=== PATIENT | male | born 1980 | race African-American/Black ===

== ENCOUNTER 2022-11-11 16:29 | Inpatient (IN) | payer OTHER ==
[~2022-11-11] VITALS: Ht 162.6 cm; Wt 82.4 kg
[2022-11-11] MEDS ORDERED: SODIUM CHLORIDE 0.9% 1,000 ML IV ONE (16:45)
[2022-11-11 17:20] LABS: Basophils # (auto) 0 10 ^3/uL (0-0.2); Basophils % (auto) 0.6 % (0.0-2.0); Eosinophils # (auto) 0.3 10 ^3/uL (0-0.8); Eosinophils % (auto) 4.6 % (0.0-7.0); Hematocrit 41.9 % (41.0-53.0); Lymphocytes # (auto) 2.1 10 ^3/uL (0.4-5.4); Mean Corpuscular Hgb Conc. 33.5 g/dL (32.0-36.0); Mean Corpuscular Volume 86.4 fL (80.0-100.0); Monocytes # (auto) 0.6 10 ^3/uL (0-1.3); Neutrophils # (auto) 3.8 10 ^3/uL (1.6-8.6); Neutrophils % (auto) 54.8 % (37.0-80.0); Nucleated Red Blood Cells % 0.1 %; Red Blood Cells 4.85 10^6/uL (4.5-5.90); Red Cell Distribution Width 13.7 % (11.8-14.3); White Blood Cell 6.9 10^3/uL (4.4-10.8)
[2022-11-11 17:47] LABS: Albumin 3.7 g/dL (3.4-5.0); Calcium 8.5 mg/dL (8.5-10.1); Potassium 4.1 mmol/L (3.5-5.1)
[2022-11-11 17:51] LABS: BUN/Creatinine Ratio 14.5 (10.0-20.0); Bilirubin, Total 0.5 mg/dL (0.2-1.0); Total Protein 7.6 g/dL (6.4-8.2)
[2022-11-11 18:34] LABS: INR 0.96 (0.9-1.15); Partial Thromboplastin Time 28.6 sec (24.6-33.4)
[2022-11-11] MEDS ORDERED: CLINDAMYCIN 600MG IV 50 ML IV ONE (19:00)
[2022-11-11] MEDS ORDERED: ONDANSETRON HCL 4 MG/2 ML VIAL IV PRN (21:00)
[2022-11-11] MEDS ORDERED: MORPHINE SULFATE INJ 2 MG/ml SYRG IV PRN (21:00)
[2022-11-11] MEDS ORDERED: NITROGLYCERIN 0.4 MG SL TAB SL PRN (21:00)
[2022-11-11] MEDS ORDERED: VANCOMYCIN 1GM/250ML 250 ML IV ONE (22:45)
[2022-11-11] MEDS ORDERED: VANCOMYCIN PER PHARMACY 1,000 MG IV SCH (22:45)
[2022-11-12 07:21] LABS: Urine Bacteria NONE SEEN /hpf (None Seen); Urine Blood Negative /uL (Negative); Urine Specific Gravity 1.023 (1.001-1.035); Urine WBC 1 /hpf (0 - 3)
[2022-11-12] MEDS: ENOXAPARIN SOD 40 MG/0.4 ML SYRINGE SC SCH (09:44)
[2022-11-12] MEDS: VANCOMYCIN 1GM/250ML 250 ML IV SCH ×2 (11:12→23:23)
[2022-11-12 13:00] VITALS: BP 106/74
[2022-11-12 16:53] VITALS: BP 106/70
[2022-11-12] MEDS: HYDROcodone-ACET 10/325MG TAB PO PRN ×2 (18:45→23:24)
[2022-11-12 20:00] VITALS: BP 115/73
[2022-11-12 22:00] VITALS: BP 115/73
[2022-11-13 05:00] VITALS: BP 112/64
[2022-11-13] MEDS ORDERED: diphenhdrAMINE HCL 50 MG/1 ML VL IV ONE (06:30)
[2022-11-13 08:30] VITALS: BP 106/71
[2022-11-13] MEDS: ENOXAPARIN SOD 40 MG/0.4 ML SYRINGE SC SCH (09:54)
[2022-11-13 12:30] VITALS: BP 98/59
[2022-11-13] MEDS: ceFAZolin 1GM/50ML 50 ML IV SCH ×2 (14:12→21:34)
[2022-11-13 17:00] VITALS: BP 118/76
[2022-11-13 22:00] VITALS: BP 112/72
[2022-11-13] MEDS: HYDROcodone-ACET 10/325MG TAB PO PRN (22:11)
[2022-11-14 05:00] VITALS: BP 110/61
[2022-11-14] MEDS: ceFAZolin 1GM/50ML 50 ML IV SCH (06:56)
[2022-11-14 08:30] VITALS: BP 113/78
[2022-11-14] MEDS: HYDROcodone-ACET 10/325MG TAB PO PRN ×2 (10:05→16:02)
[2022-11-14] MEDS: ENOXAPARIN SOD 40 MG/0.4 ML SYRINGE SC SCH (10:06)
[2022-11-14 12:02] LABS: Hepatitis C Antibody Negative (Negative)
[2022-11-14 13:30] VITALS: BP 101/63
[2022-11-14] MEDS: LINEZOLID 600MG/300ML 300 ML IV SCH ×2 (15:24→22:05)
[2022-11-14 17:05] VITALS: BP 113/68
[2022-11-14 22:00] VITALS: BP 138/83
[2022-11-14] MEDS ORDERED: LINEZOLID 600 MG IV SCH (22:00)
[2022-11-15 05:09] VITALS: BP 114/68
[2022-11-15 09:00] VITALS: BP 112/65
[2022-11-15] MEDS: ENOXAPARIN SOD 40 MG/0.4 ML SYRINGE SC SCH (10:32)
[2022-11-15] MEDS: LINEZOLID 600MG/300ML 300 ML IV SCH ×2 (10:32→21:05)
[2022-11-15] MEDS: HYDROcodone-ACET 10/325MG TAB PO PRN ×2 (10:41→21:03)
[2022-11-15 13:00] VITALS: BP 112/59
[2022-11-15 17:00] VITALS: BP 101/68
[2022-11-16 05:00] VITALS: BP 110/62
[2022-11-16] MEDS: HYDROcodone-ACET 10/325MG TAB PO PRN (05:58)
[2022-11-16 08:30] VITALS: BP 107/56
[2022-11-16] MEDS: LINEZOLID 600MG/300ML 300 ML IV SCH (09:50)
[2022-11-16] MEDS: ENOXAPARIN SOD 40 MG/0.4 ML SYRINGE SC SCH ×2 (09:51→09:59)
[2022-11-16 12:30] VITALS: BP 112/72
[2022-11-16] MEDS ORDERED: predniSONE 20 MG TAB PO ONE (13:30)
[2022-11-16 17:07] VITALS: BP 113/73
[2022-11-16 22:00] VITALS: BP 125/74
[2022-11-16] MEDS: VANCOMYCIN 1GM/250ML 250 ML IV SCH (22:12)
[2022-11-16] MEDS: diphenhdrAMINE HCL 50 MG/1 ML VL IV PRN (22:13)
[2022-11-16] MEDS: APIXABAN 5 MG TAB PO SCH (22:13)
[2022-11-17 05:00] VITALS: BP 118/81
[2022-11-17 08:30] VITALS: BP 117/74
[2022-11-17] MEDS: VANCOMYCIN 1GM/250ML 250 ML IV SCH ×2 (08:46→22:31)
[2022-11-17] MEDS: APIXABAN 5 MG TAB PO SCH ×2 (08:47→22:32)
[2022-11-17 12:30] VITALS: BP 109/67
[2022-11-17 16:55] VITALS: BP 113/81
[2022-11-17 22:56] VITALS: BP 126/86
[2022-11-18 05:00] VITALS: BP 111/70
[2022-11-18] MEDS: diphenhdrAMINE HCL 50 MG/1 ML VL IV PRN ×2 (05:54→12:05)
[2022-11-18 06:19] LABS: Calcium 8.4 mg/dL (8.5-10.1); Potassium 3.8 mmol/L (3.5-5.1)
[2022-11-18 06:25] LABS: Albumin 3.1 g/dL (3.4-5.0); Bilirubin, Total 0.3 mg/dL (0.2-1.0); Total Protein 7.4 g/dL (6.4-8.2)
[2022-11-18] MEDS: traMADol HCL 50 MG TAB PO PRN (08:26)
[2022-11-18 08:30] VITALS: BP 117/80
[2022-11-18] MEDS: VANCOMYCIN 1GM/250ML 250 ML IV SCH (10:00)
[2022-11-18] MEDS: APIXABAN 5 MG TAB PO SCH ×2 (10:58→21:09)
[2022-11-18 12:30] VITALS: BP 111/76
[2022-11-18] MEDS ORDERED: predniSONE 20 MG TAB PO ONE (13:00)
[2022-11-18] MEDS ORDERED: CLINDAMYCIN 300MG IV 50 ML IV SCH (14:00)
[2022-11-18] MEDS ORDERED: CLINDAMYCIN 600MG IV 50 ML IV SCH (14:00)
[2022-11-18 16:52] VITALS: BP 105/75
[2022-11-18] MEDS: CLINDAMYCIN 300MG IV 50 ML IV SCH ×2 (17:00→18:16)
[2022-11-18 22:00] VITALS: BP 112/73
[2022-11-19] MEDS: CLINDAMYCIN 300MG IV 50 ML IV SCH ×6 (01:33→17:35)
[2022-11-19] MEDS: traMADol HCL 50 MG TAB PO PRN (01:34)
[2022-11-19 05:00] VITALS: BP 111/70
[2022-11-19] MEDS: diphenhdrAMINE HCL 50 MG/1 ML VL IV PRN ×3 (06:48→16:23)
[2022-11-19 09:00] VITALS: BP 115/79
[2022-11-19] MEDS: APIXABAN 5 MG TAB PO SCH ×2 (11:29→21:42)
[2022-11-19 13:00] VITALS: BP 114/68
[2022-11-19 16:00] VITALS: BP 106/77
[2022-11-19 22:01] VITALS: BP 116/60
[2022-11-20] MEDS: diphenhdrAMINE HCL 50 MG/1 ML VL IV PRN ×4 (01:25→23:09)
[2022-11-20] MEDS: CLINDAMYCIN 300MG IV 50 ML IV SCH ×6 (01:29→18:51)
[2022-11-20 05:00] VITALS: BP 112/67
[2022-11-20 09:00] VITALS: BP 122/70
[2022-11-20] MEDS: APIXABAN 5 MG TAB PO SCH ×2 (09:20→21:06)
[2022-11-20] MEDS: traMADol HCL 50 MG TAB PO PRN ×2 (09:20→18:50)
[2022-11-20] MEDS ORDERED: methylPREDNISolone SOD SUCC 40 MG/ML VL IV ONE (09:30)
[2022-11-20 13:00] VITALS: BP 111/79
[2022-11-20 17:00] VITALS: BP 122/82
[2022-11-20] MEDS ORDERED: CALAMINE TOPical LOTION180 ML TOP PRN (18:45)
[2022-11-20 22:00] VITALS: BP 127/72
[2022-11-21] MEDS: CLINDAMYCIN 300MG IV 50 ML IV SCH ×6 (00:05→17:56)
[2022-11-21] MEDS: traMADol HCL 50 MG TAB PO PRN ×3 (01:03→21:05)
[2022-11-21] MEDS: diphenhdrAMINE HCL 50 MG/1 ML VL IV PRN ×5 (03:15→21:25)
[2022-11-21 05:00] VITALS: BP 117/67
[2022-11-21 09:00] VITALS: BP 124/81
[2022-11-21] MEDS: APIXABAN 5 MG TAB PO SCH ×2 (09:11→21:05)
[2022-11-21 12:57] VITALS: BP 110/69
[2022-11-21] MEDS ORDERED: methylPREDNISolone SOD SUCC 40 MG/ML VL IV ONE (14:00)
[2022-11-21 22:00] VITALS: BP 113/70
[2022-11-22] MEDS: CLINDAMYCIN 300MG IV 50 ML IV SCH ×6 (01:25→18:49)
[2022-11-22] MEDS: diphenhdrAMINE HCL 50 MG/1 ML VL IV PRN ×5 (01:26→22:00)
[2022-11-22 08:00] VITALS: BP 107/64
[2022-11-22] MEDS: traMADol HCL 50 MG TAB PO PRN ×2 (11:02→22:00)
[2022-11-22] MEDS: APIXABAN 5 MG TAB PO SCH ×2 (11:02→22:00)
[2022-11-22 13:00] VITALS: BP 105/71
[2022-11-22 17:00] VITALS: BP 110/72
[2022-11-22 22:00] VITALS: BP 109/69
[2022-11-23] MEDS: CLINDAMYCIN 300MG IV 50 ML IV SCH ×6 (01:11→18:30)
[2022-11-23] MEDS: diphenhdrAMINE HCL 50 MG/1 ML VL IV PRN ×4 (02:50→21:45)
[2022-11-23 05:00] VITALS: BP 119/73
[2022-11-23 07:30] VITALS: BP 117/79
[2022-11-23 09:00] VITALS: BP 117/79
[2022-11-23] MEDS: APIXABAN 5 MG TAB PO SCH ×2 (09:36→21:44)
[2022-11-23 13:00] VITALS: BP 109/79
[2022-11-23 17:14] VITALS: BP 124/79
[2022-11-23 22:00] VITALS: BP 118/83
[2022-11-24] MEDS: CLINDAMYCIN 300MG IV 50 ML IV SCH ×3 (00:03→09:00)
[2022-11-24 05:00] VITALS: BP 106/83
[2022-11-24] MEDS: traMADol HCL 50 MG TAB PO PRN (06:05)
[2022-11-24] MEDS: diphenhdrAMINE HCL 50 MG/1 ML VL IV PRN ×4 (06:06→23:06)
[2022-11-24 09:00] VITALS: BP 116/87
[2022-11-24] MEDS: APIXABAN 5 MG TAB PO SCH ×2 (09:47→23:03)
[2022-11-24 13:00] VITALS: BP 114/78
[2022-11-24 17:00] VITALS: BP 107/78
[2022-11-24 22:00] VITALS: BP 118/85
[2022-11-24] MEDS: LINEZOLID 600MG/300ML 300 ML IV SCH (22:57)
[2022-11-24] MEDS: methylPREDNISolone SOD SUCC 125 MG/2 ML VL IV SCH (22:58)
[2022-11-25 05:00] VITALS: BP 112/81
[2022-11-25] MEDS: diphenhdrAMINE HCL 50 MG/1 ML VL IV PRN ×2 (06:01→10:07)
[2022-11-25 09:00] VITALS: BP 141/97
[2022-11-25] MEDS: LINEZOLID 600MG/300ML 300 ML IV SCH (10:08)
[2022-11-25] MEDS: APIXABAN 5 MG TAB PO SCH (10:08)
[2022-11-25] MEDS: methylPREDNISolone SOD SUCC 125 MG/2 ML VL IV SCH (10:08)
[2022-11-25] MEDS ORDERED: PRED20TA2 PO (11:55)
[2022-11-25] MEDS ORDERED: CLIN300C8 PO (11:55)
[2022-11-25] MEDS ORDERED: APIX5TAB PO (11:55)
[2022-11-25 13:00] VITALS: BP 119/88
== END 2022-11-25 16:35 | DRG 603 ==
LOC: ER 16:29 → EEVIPCON 16:29 → OVERFLOW 21:02 → WEST WING 11-12 11:44
PROVIDERS: ADMIT Internal Medicine; ATTEND Internal Medicine
DX: L03.116 Cellulitis of left lower limb (principal); K75.9 Inflammatory liver disease, unspecified; J45.909 Unspecified asthma, uncomplicated; T36.8X5A Adverse effect of other systemic antibiotics, initial encounter; R21 Rash and other nonspecific skin eruption; Z20.822 Contact with and (suspected) exposure to COVID-19; B95.62 Methicillin resistant Staphylococcus aureus infection as the cause of diseases classified elsewhere; Z83.3 Family history of diabetes mellitus; Z82.49 Family history of ischemic heart disease and other diseases of the circulatory system; Y92.89 Other specified places as the place of occurrence of the external cause
CPT/HCPCS: 36415; 73700; 80053; 80202; 81001; 83036; 85025; 85049; 85610; 85652; 85730; 86803; 87040; 87077; 87081; 87186; 87205; 87340; 87426; 93971; 96360; G0378; J0690; J3490